=== PATIENT | female | born 2000 | race African-American/Black ===

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

== ENCOUNTER 2021-09-17 22:18 | Emergency (ER) | payer MEDICAID ==
[~2021-09-17] VITALS: Ht 157.5 cm; Wt 71.8 kg
[2021-09-17 22:56] VITALS: BP 107/63
[2021-09-17 23:21] LABS: BILIRUBIN,URINE NEGATIVE (NEG); CLARITY,URINE CLEAR; COLOR,URINE YELLOW; NITRITE,URINE NEGATIVE (NEG); PH,URINE 7.5 (<5.0-8.0); PROTEIN,URINE NEGATIVE (NEG-TRACE); UROBILINOGEN,URINE 0.2 mg/dL (0.2 mg/dL)
--- NOTE | 2021-09-17 23:22 | PHYS DOC ---
Past Medical History Past Medical History: Heart Disease, Other Additional Past Medical Histor: UNKNOWN CARDIAC PROBLEM Past Surgical History: Pacemaker, Other Additional Past Surgical Histo: AICD REMOVED Smoking Status: Former Smoker Alcohol Use: None Drug Use: Marijuana General Adult EDM: Chief Complaint: VAGINAL BLEEDING HPI: HPI: Patient is a 20 year old female who presents with states she had a baby 6 months ago and since then she has had some constipation issues and she had a hemorrhoid. She states that her OB doctor told her that the hemorrhoid came from when she was and plus of her constipation issues. Patient states that she still has hemorrhoid that gets bigger and smaller. Patient is educated that hemorrhoids do not go away unless they are removed surgically. Patient states she is also having vaginal itching and burning with urination. She denies abdominal pain, nausea, vomiting, diarrhea, fever, blood in her stool, chest pain, shortness of air, headache, dizziness. She denies concern for STD and would like to wait for her results before she is treated. No pain at this time. Review of Systems: Review of Systems: Constitutional: Denies fever or chills. [] Eyes: Denies change in visual acuity. [] HENT: Denies nasal congestion or sore throat. [] Respiratory: Denies cough or shortness of breath. [] Cardiovascular: Denies chest pain or edema. [] GI: Denies abdominal pain, nausea, vomiting, bloody stools or diarrhea. + Hemorrhoid [] : Denies dysuria. + Burning with urination. + Vaginal itching [] Musculoskeletal: Denies back pain or joint pain. [] Integument: Denies rash. [] Neurologic: Denies headache, focal weakness or sensory changes. [] Endocrine: Denies polyuria or polydipsia. [] Lymphatic: Denies swollen glands. [] Psychiatric: Denies depression or anxiety. [] Heart Score: C/O Chest Pain: No Allergies: Allergies: Allergies Coded Allergies Type Severity Reaction Last Updated Verified No Known Drug Allergies 06/01/17 No Physical Exam: PE: Constitutional: Well developed, well nourished, no acute distress, non-toxic appearance. [] HENT: Normocephalic, atraumatic, bilateral external ears normal, oropharynx moist, no oral exudates, nose normal. [] Eyes: PERRLA, EOMI, conjunctiva normal, no discharge. [] Neck: Normal range of motion, no tenderness, supple, no stridor. [] Cardiovascular:Heart rate regular rhythm, no murmur [] Lungs & Thorax: Bilateral breath sounds clear to auscultation [] Abdomen: Bowel sounds normal, soft, no tenderness, no masses, no pulsatile masses. [] Skin: Warm, dry, no erythema, no rash. Small nonthrombosed hemorrhoid to external rectum. [] Back: No tenderness, no CVA tenderness. [] Extremities: No tenderness, no cyanosis, no clubbing, ROM intact, no edema. [] Neurologic: Alert and oriented X 3, normal motor function, normal sensory function, no focal deficits noted. [] Psychologic: Affect normal, judgement normal, mood normal. [] EKG: EKG: [] Radiology/Procedures: Radiology/Procedures: [] Course & Med Decision Making: Course & Med Decision Making Pertinent Labs and Imaging studies reviewed. (See chart for details) See HPI. Alert and oriented x4. Ambulatory steady gait. Speaks in full clear sentences. No CVA tenderness. Abdomen is soft and nontender. Small nonthrombosed hemorrhoid to external rectum. No discharge from rectum. Wet prep did not show any acute findings. I have sent off for chlamydia and gonorrhea. Follow-up with your competitive intelligence analyst if needed. Take antibiotic as prescribed and with food. [] Hemant Disclaimer: Hemant Disclaimer: This electronic medical record was generated, in whole or in part, using a voice recognition dictation system. Departure Departure Impression: Primary Impression: Urinary symptom or sign Disposition: 01 HOME / SELF CARE / HOMELESS Condition: STABLE Referrals: NO PCP (PCP) Patient Instructions: Urinary Tract Infection Additional Instructions: Follow-up with primary care provider or your competitive intelligence analyst to soon as possible. Drink plenty of fluids. Take medication as prescribed and with food. Return for vomiting, high fever or bloody urine. Scripts Hydrocortisone (ANUSOL-HC) 30 Gm Cream..g. 1 EDDIE TP BID PRN for RECTAL PAIN, #30 GM 0 Refills Prov: BLAKE HENRIQUEZ APRN 09/18/21 Cephalexin (KEFLEX) 500 Mg Capsule 1 CAP PO BID for 7 Days, #14 CAP Prov: BLAKE HENRIQUEZ APRN 09/18/21 BLAKE HENRIQUEZ APRN Sep 17, 2021 23:22
[2021-09-17 23:31] LABS: BACTERIA,URINE FEW /HPF (0-FEW)
[2021-09-18] MEDS ORDERED: CEPH500C PO (00:22)
[2021-09-18] MEDS ORDERED: HYDR30CR61 TP (00:22)
[2021-09-20 16:25] LABS: GC PROBE Negative (Negative)
== END 2021-09-18 00:42 | disposition home or self-care (01) ==
LOC: ER 22:18
DX: K64.4 Residual hemorrhoidal skin tags (principal)
CPT/HCPCS: 81001; 81025; 87086; 87491; 87591; 99283; Q0111

== ENCOUNTER 2021-10-09 18:45 | Emergency (ER) | payer MEDICAID ==
[~2021-10-09] VITALS: Ht 157.5 cm; Wt 72.3 kg
[~2021-10-09 18:45] MED LIST changes: +CEPH500C PO; +HYDR30CR61 TP
[2021-10-09 19:33] VITALS: BP 134/78
[2021-10-09] MEDS ORDERED: DOXY100T PO (20:06)
[2021-10-09] MEDS ORDERED: METR-34 PO (20:06)
--- NOTE | 2021-10-09 20:07 | PHYS DOC ---
Past Medical History Past Medical History: Heart Disease, Other Additional Past Medical Histor: UNKNOWN CARDIAC PROBLEM (KAREN RUIZ Abundio SAND MIXER OPERATOR) Past Surgical History: Pacemaker, Tonsillectomy, Other Additional Past Surgical Histo: AICD REMOVED (SARAKAREN Del Castillo SAND MIXER OPERATOR) Smoking Status: Never Smoker Alcohol Use: Occasionally Drug Use: Marijuana (SARAKAREN SAND MIXER OPERATOR) General Adult EDM: Chief Complaint: FOREIGN BODY VAGINA HPI: HPI: Patient is a 21 year old female with a history of heart disease presenting today concerned she left a tampon in the vagina and she cannot reach it, she put the tampon in yesterday. Denies any symptoms. She states she was at a green party yesterday all night and did not realize she had a tampon. (KAREN RUIZ Abundio SAND MIXER OPERATOR) Review of Systems: Review of Systems: Constitutional: Denies fever or chills. [] GI: Denies abdominal pain, nausea, vomiting, bloody stools or diarrhea. [] Female : Reports foreign body in the vagina : Denies dysuria. [] Musculoskeletal: Denies back pain or joint pain. [] Integument: Denies rash. [] Neurologic: Denies headache, focal weakness or sensory changes. [] Psychiatric: Denies depression or anxiety. [] (DENYRomanKAREN Del Castillo SAND MIXER OPERATOR) Heart Score: C/O Chest Pain: N/A Risk Factors: Risk Factors: DM, Current or recent (<one month) smoker, HTN, HLP, family history of CAD, obesity. Risk Scores: Score 0 - 3: 2.5% MACE over next 6 weeks - Discharge Home Score 4 - 6: 20.3% MACE over next 6 weeks - Admit for Clinical Observation Score 7 - 10: 72.7% MACE over next 6 weeks - Early Invasive Strategies (CARLOKAREN QUINTANA SAND MIXER OPERATOR) Allergies: Allergies: Allergies Coded Allergies Type Severity Reaction Last Updated Verified No Known Drug Allergies 06/01/17 No (DENYKAREN Owens SAND MIXER OPERATOR) Physical Exam: PE: Constitutional: Well developed, well nourished, no acute distress, non-toxic appearance. [] Abdomen: Bowel sounds normal, soft, no tenderness, no masses, no pulsatile masses. [] Pelvic exam External pelvic is normal, internal vagina noted for foreign object consistent with a tampon which was successfully removed with forceps. IUD strings noted in the cervical os. Skin: Warm, dry, no erythema, no rash. [] Back: No tenderness, no CVA tenderness. [] Extremities: No tenderness, no cyanosis, no clubbing, ROM intact, no edema. [] Neurologic: Alert and oriented X 3, normal motor function, normal sensory function, no focal deficits noted. [] Psychologic: Affect normal, judgement normal, mood normal. [] (KAREN RUIZ APRN) Current Patient Data: Vital Signs: Vital Signs Date Time Temp Pulse Resp B/P (MAP) Pulse Ox O2 Delivery O2 Flow Rate FiO2 10/09/21 19:33 98.8 72 16 134/78 (96) 100 Room Air 98.8 (KAREN RUIZ APRN) EKG: EKG: [] (KAREN RUIZ APRN) Radiology/Procedures: Radiology/Procedures: [] (KAREN RUIZ APRN) Course & Med Decision Making: Course & Med Decision Making Pertinent Labs and Imaging studies reviewed. (See chart for details) This is a 21-year-old female patient presented to the ED today complaining of tampon in the vagina that she left yesterday at 7 PM. Patient was unable to remove it this morning. I successfully remove the tampon with a forceps. She has history of heart disease. She was discharged on doxycycline and metronidazole. Instructed not to have any intercourse for 7 days. Follow-up with AEROSPACE MECHANIC in a week (KAREN RUIZ APRN) Dragon Disclaimer: Dragon Disclaimer: This electronic medical record was generated, in whole or in part, using a voice recognition dictation system. (KAREN RUIZ APRN) Departure Departure Impression: Primary Impression: Foreign body in vagina Qualified Codes: T19.2XXA - Foreign body in vulva and vagina, initial encounter Disposition: HOME / SELF CARE / HOMELESS Condition: STABLE Referrals: NO PCP (PCP) ELENA AYERS MD follow up in one week Patient Instructions: Vaginal Foreign Body, [id number] Additional Instructions: We removed a tampon from your vagina. Please take the prescribed medications as ordered until completed. Follow-up with your AEROSPACE MECHANIC in 1 week Scripts Doxycycline Hyclate (DOXYCYCLINE HYCLATE) 100 Mg Tablet 1 TAB PO BID, #14 TAB Prov: KAREN RUIZ APRN 10/09/21 Metronidazole (METRONIDAZOLE) 500 Mg Tablet 1 TAB PO BID for 7 Days, #14 TAB 0 Refills Prov: KAREN RUIZ APRN 10/09/21 Attending Signature Attending Signature I have reviewed the PA/INFORMATION SYSTEMS ADMINISTRATOR's note and plan of care. I was available for con sultation as needed during the patient's visit in the emergency department. I agree with the clinical impression, plan, and disposition. (ELENA OCONNOR DO) KAREN RUIZ APRN Oct 09, 2021 20:06 ELENA OCONNOR DO Oct 09, 2021 23:23
== END 2021-10-09 20:00 | disposition home or self-care (01) ==
LOC: ER 18:45
DX: T19.2XXA Foreign body in vulva and vagina, initial encounter (principal); Z86.79 Personal history of other diseases of the circulatory system; Z95.810 Presence of automatic (implantable) cardiac defibrillator; X58.XXXA Exposure to other specified factors, initial encounter; Y93.89 Activity, other specified; Y92.89 Other specified places as the place of occurrence of the external cause; Y99.8 Other external cause status
CPT/HCPCS: 99284

== ENCOUNTER 2022-01-01 12:53 | Emergency (ER) | payer MEDICAID ==
[~2022-01-01] VITALS: Ht 157.5 cm; Wt 62.4 kg
[~2022-01-01 12:53] MED LIST changes: +DOXY100T PO; +METR-34 PO
[2022-01-01 13:00] VITALS: BP 119/61
--- NOTE | 2022-01-01 13:16 | PHYS DOC ---
Past Medical History Past Medical History: Heart Disease, Other Additional Past Medical Histor: UNKNOWN CARDIAC PROBLEM Past Surgical History: Pacemaker, Tonsillectomy, Other Additional Past Surgical Histo: AICD REMOVED Smoking Status: Never Smoker Alcohol Use: Occasionally Drug Use: Marijuana General Adult EDM: Chief Complaint: VAGINAL BLEEDING HPI: HPI: Patient is a 21-year-old female that presents today with vaginal bleeding on and off since December 09. Patient states she had an IUD placed in June 2021 after the of her child, she states that since that time she has had 1-2 periods a month and starting in December 2021 she has had continuous bleeding since December 09. Patient states that she goes through approximately 2-3 tampons a day, and she is concerned that it may be related to the IUD. She has not followed up with her primary care provider that placed the IUD in June to let her know that she is having problems she just thought it would go away. Patient denies abdominal pain, fever chills, nausea, vomiting, she does state that she has had some diarrhea stools in the last couple weeks as well. Patient states that she does not think she is , but has been having unprotected sex. Patient states she did not have vaginal discharge prior to vaginal bleeding started. Review of Systems: Review of Systems: Constitutional: Denies fever or chills. [] Eyes: Denies change in visual acuity. [] HENT: Denies nasal congestion or sore throat. [] Respiratory: Denies cough or shortness of breath. [] Cardiovascular: Denies chest pain or edema. [] GI: Denies abdominal pain, nausea, vomiting, bloody stools or diarrhea. [] : Denies dysuria. [] Musculoskeletal: Denies back pain or joint pain. [] Integument: Denies rash. [] Neurologic: Denies headache, focal weakness or sensory changes. [] Endocrine: Denies polyuria or polydipsia. [] Lymphatic: Denies swollen glands. [] Psychiatric: Denies depression or anxiety. [] Heart Score: C/O Chest Pain: No Risk Factors: Risk Factors: DM, Current or recent (<one month) smoker, HTN, HLP, family history of CAD, obesity. Risk Scores: Score 0 - 3: 2.5% MACE over next 6 weeks - Discharge Home Score 4 - 6: 20.3% MACE over next 6 weeks - Admit for Clinical Observation Score 7 - 10: 72.7% MACE over next 6 weeks - Early Invasive Strategies Allergies: Allergies: Allergies Coded Allergies Type Severity Reaction Last Updated Verified No Known Drug Allergies 06/01/17 No Physical Exam: PE: Constitutional: Well developed, well nourished, no acute distress, non-toxic appearance. [] HENT: Normocephalic, atraumatic, bilateral external ears normal, oropharynx moist, no oral exudates, nose normal. [] Eyes: PERRLA, EOMI, conjunctiva normal, no discharge. [] Neck: Normal range of motion, no tenderness, supple, no stridor. [] Cardiovascular:Heart rate regular rhythm, no murmur [] Lungs & Thorax: Bilateral breath sounds clear to auscultation [] Abdomen: Bowel sounds normal, soft, no tenderness, no masses, no pulsatile masses. [] Skin: Warm, dry, no erythema, no rash. [] Back: No tenderness, no CVA tenderness. [] Extremities: No tenderness, no cyanosis, no clubbing, ROM intact, no edema. [] Neurologic: Alert and oriented X 3, normal motor function, normal sensory function, no focal deficits noted. [] Psychologic: Affect normal, judgement normal, mood normal. [] Current Patient Data: Labs: SPEC #: [id number] BEAU: 01/01/22 STATUS: COMP REQ #: [id number] RECD: 01/01/22 [facility] DR: UDAY PRIEST APRN SOURCE: VAGINAL ENTR: 01/01/[address]: SHARRI PCP SPDESC: ORDERED: WET PREP COMMENTS: Has specimen been collected/obtained? Y Procedure Result WET PREP Final YEAST NONE SEEN TRICHOMONAS NONE SEEN CLUE CELLS CLUE CELLS PRESENT ALTERED CHRISTAL ALTERED CHRISTAL PRESENT SUGGESTIVE OF BACTERIAL VAGINOSIS WBCS FEW SQUAMOUS EPS MANY Laboratory Tests Test 01/01/22 13:37 01/01/22 15:55 01/01/22 16:00 White Blood Count 6.3 x10^3/uL Red Blood Count 4.36 x10^6/uL Hemoglobin 12.8 g/dL Hematocrit 38.2 % Mean Corpuscular Volume 88 fL Mean Corpuscular Hemoglobin 29 pg Mean Corpuscular Hemoglobin Concent 34 g/dL Red Cell Distribution Width 14.5 % Platelet Count 288 x10^3/uL Neutrophils (%) (Auto) 53 % Lymphocytes (%) (Auto) 39 % Monocytes (%) (Auto) 7 % Eosinophils (%) (Auto) 1 % Basophils (%) (Auto) 1 % Neutrophils # (Auto) 3.3 x10^3/uL Lymphocytes # (Auto) 2.5 x10^3/uL Monocytes # (Auto) 0.4 x10^3/uL Eosinophils # (Auto) 0.1 x10^3/uL Basophils # (Auto) 0.0 x10^3/uL Sodium Level 141 mmol/L Potassium Level 4.2 mmol/L Chloride Level 103 mmol/L Carbon Dioxide Level 26 mmol/L Anion Gap 12 Blood Urea Nitrogen 9 mg/dL Creatinine 0.8 mg/dL Estimated GFR (Cockcroft-Gault) 110.7 Glucose Level 74 mg/dL Calcium Level 9.1 mg/dL Urine Collection Type U cath Urine Color (Auto) Yellow Urine Turbidity Clear Urine pH (Auto) 6.0 Urine Specific Vidal 1.036 Urine Protein (Auto) 100 mg/dL Urine Glucose (Auto)(UA) Negative mg/dL Urine Ketones (Auto) 80 mg/dL Urine Blood (Auto) Negative Urine Nitrite Negative Urine Bilirubin (Auto) Negative Urine Urobilinogen (Auto) 3 mg/dL Urine Leukocyte Esterase (Auto) Negative Urine RBC 1-2 /HPF Urine WBC 1-4 /HPF Urine Squamous Epithelial Cells Occ /LPF Urine Bacteria Few /HPF Urine Mucus Mod /LPF Bedside Urine HCG, Qualitative Hcg negative Vital Signs: Vital Signs Date Time Temp Pulse Resp B/P (MAP) Pulse Ox O2 Delivery O2 Flow Rate FiO2 01/01/22 13:00 98.6 93 18 119/61 (80) 100 Room Air 98.6 Vital Signs Date Time Temp Pulse Resp B/P (MAP) Pulse Ox O2 Delivery O2 Flow Rate FiO2 01/01/22 13:00 98.6 93 18 119/61 (80) 100 Room Air 98.6 EKG: EKG: [] Radiology/Procedures: Radiology/Procedures: REASON: vaginal bleeding with IUD PROCEDURE: TRANSVAGINAL Transvaginal ULTRASOUND PELVIS Reason for examination: vaginal bleeding with IUD. Last menstrual period was 12/08/2021. TECHNIQUE: Transvaginal pelvic sonography was performed. FINDINGS: The uterus measures 8.3 x 4.5 x 4.1 cm in greatest dimension and appears to be homogeneous. An IUD is seen within the endometrial canal. The cervix is a small amount of fluid in the cervical canal. The endometrium is not abnormally thickened at 3.8 mm. The right ovary measures 3.2 x 2.0 x 2.0 cm in greatest dimensions and contains several follicles with the largest measuring 9.7 mm in size. The ovary shows good vascular flow. No right adnexal masses are seen. The left ovary measures 2.8 x 1.6 x 1.5 cm in greatest dimension and contains a single dominant 8 mm follicle. There is good vascular flow IMPRESSION: Small amount of fluid in cervical canal. Small follicles bilaterally. Electronically signed by: Manuela Glasgow MD (01/01/2022 2:33 PM) SARAVANAN [] Course & Med Decision Making: Course & Med Decision Making Pertinent Labs and Imaging studies reviewed. (See chart for details) 1649 reviewed radiological and laboratory results with patient, did inform her that her swabs did show a bacterial vaginosis, which can cause the vaginal bleeding that she has been experiencing, and did tell her that we will treat her for that, her urine also showed white blood cells could be indicative to urinary tract infection which I will treat as well. I did encourage patient to contact the physician or her [facility] for further management of her vaginal bleeding in relationship to her IUD, did inform her that her hemoglobin hematocrit are stable at this time but since she has concerns related to her vaginal bleeding that she should follow-up with her [facility] because that is her area of expertise. Patient verbalized understanding of this and is agreeable to the plan of care. Hemant Disclaimer: Hemant Disclaimer: This electronic medical record was generated, in whole or in part, using a voice recognition dictation system. Departure Departure Impression: Primary Impression: Bacterial vaginosis Additional Impressions: UTI (urinary tract infection) Qualified Codes: N30.00 - Acute cystitis without hematuria Vaginal bleeding Disposition: HOME / SELF CARE / HOMELESS Condition: STABLE Referrals: NO PCP (PCP) Patient Instructions: Bacterial Vaginosis, Urinary Tract Infection Additional Instructions: Flagyl 500 mg take 1 tablet twice daily for 7 full days Macrobid take 1 tablet twice daily for 7 full days Follow-up with your primary care physician, your [facility], or one of the listed clinics below for further management of your vaginal bleeding in relationship to your IUD Return to the emergency department for increased abdominal pain that localizes to the right lower quadrant, increased vaginal bleeding or your bleeding through 2 pads an hour for 4 straight hours, or development of a fever [place] [facility] [address] [place] [address] [facility] [address] [place] [address] [facility] [address] [place] [address] [facility] [address] [place] [address] [facility] [address] [place] [address] [facility] [address] [place] [address] [facility] [address] [place] [address] [facility] [address] [place] [address] [facility] [address] [place] [address] [facility] [address] [place] [address] Scripts Nitrofurantoin Monohyd/M-Cryst (MACROBID 100 MG CAPSULE) 100 Mg Capsule 1 CAP PO BID for 7 Days, #14 CAP 0 Refills Prov: UDAY PRIEST COMPOSING MACHINE OPERATOR 01/01/22 Metronidazole (METRONIDAZOLE) 500 Mg Tablet 1 TAB PO BID for 7 Days, #14 TAB 0 Refills Prov: UDAY PRIEST COMPOSING MACHINE OPERATOR 01/01/22 UDAY PRIEST COMPOSING MACHINE OPERATOR Jan 01, 2022 13:16
[2022-01-01 13:46] LABS: BASO % 1 % (0-3); EOS # 0.1 x10^3/uL (0.0-0.7); EOS % 1 % (0-3); HEMATOCRIT 38.2 % (36.0-47.0); HEMOGLOBIN 12.8 g/dL (12.0-15.5); LYMPH # 2.5 x10^3/uL (1.0-4.8); LYMPH % 39 % (24-48); MEAN CORPUSCULAR HEMOGLOBIN 29 pg (25-35); MEAN CORPUSCULAR HGB CONC 34 g/dL (31-37); MEAN CORPUSCULAR VOLUME 88 fL (79-100); MONO # 0.4 x10^3/uL (0.0-1.1); MONO % 7 % (0-9); NEUT # 3.3 x10^3/uL (1.8-7.7); NEUT % 53 % (31-73); PLATELET COUNT 288 x10^3/uL (140-400); RED BLOOD COUNT 4.36 x10^6/uL (3.50-5.40); RED CELL DISTRIBUTION WIDTH 14.5 % (11.5-14.5); WHITE BLOOD COUNT 6.3 x10^3/uL (4.0-11.0)
[2022-01-01 13:55] LABS: CALCIUM 9.1 mg/dL (8.5-10.1); CREATININE 0.8 mg/dL (0.6-1.0); GFR 110.7; POTASSIUM 4.2 mmol/L (3.5-5.1)
--- NOTE | 2022-01-01 14:35 | RAD ---
Transvaginal ULTRASOUND PELVIS Reason for examination: vaginal bleeding with IUD. Last menstrual period was 12/08/2021. TECHNIQUE: Transvaginal pelvic sonography was performed. FINDINGS: The uterus measures 8.3 x 4.5 x 4.1 cm in greatest dimension and appears to be homogeneous. An IUD is seen within the endometrial canal. The cervix is a small amount of fluid in the cervical canal. The endometrium is not abnormally thickened at 3.8 mm. The right ovary measures 3.2 x 2.0 x 2.0 cm in greatest dimensions and contains several follicles wit h the largest measuring 9.7 mm in size. The ovary shows good vascular flow. No right adnexal masses a re seen. The left ovary measures 2.8 x 1.6 x 1.5 cm in greatest dimension and contains a single dominant 8 mm follicle. There is good vascular flow IMPRESSION: Small amount of fluid in cervical canal. Small follicles bilaterally. Electronically signed by: Manuela Glasgow MD (01/01/2022 2:33 PM) SARAVANAN
[2022-01-01 16:19] LABS: BACTERIA,URINE FEW /HPF (0-FEW)
[2022-01-01] MEDS ORDERED: NITR100C62 PO (16:53)
[2022-01-01] MEDS ORDERED: METR-34 PO (16:53)
[2022-01-03 13:16] LABS: GC PROBE Negative (Negative)
== END 2022-01-01 17:01 | disposition home or self-care (01) ==
LOC: ER 12:53
DX: N30.00 Acute cystitis without hematuria (principal); N76.0 Acute vaginitis; B96.89 Other specified bacterial agents as the cause of diseases classified elsewhere; Z95.0 Presence of cardiac pacemaker
CPT/HCPCS: 36415; 76830; 80048; 81001; 81025; 85025; 87491; 87591; 99284; Q0111

== ENCOUNTER 2022-01-15 21:14 | Inpatient (IN) | payer MEDICAID ==
[~2022-01-15] VITALS: Ht 157.5 cm; Wt 62.2 kg
--- NOTE | 2022-01-15 21:29 | PHYS DOC ---
Past Medical History Past Medical History: Heart Disease, Other Additional Past Medical Histor: UNKNOWN CARDIAC PROBLEM (KAREN RUIZ IRRIGATIONIST) Past Surgical History: Pacemaker, Tonsillectomy, Other Additional Past Surgical Histo: AICD REMOVED (KAREN RUIZ IRRIGATIONIST) Smoking Status: Never Smoker Alcohol Use: Occasionally Drug Use: Marijuana (KAREN RUIZ IRRIGATIONIST) General Adult EDM: Chief Complaint: SUICDAL IDEATION HPI: HPI: Patient is a 21 year old female with previous history of SI presented to the ED today to be evaluated for drug overdose. Patient took unknown amount of Tylenol 500 mg and a medicine that begins with the B for BV or chlamydia. Patient will not give us much information. She is facing away from people. She states she was suicidal and she is still suicidal. She will not give us her current suicidal plan. She was placed on 1:1 right away. (KAREN RUIZ IRRIGATIONIST) Review of Systems: Review of Systems: Constitutional: Denies fever or chills. [] Eyes: Denies change in visual acuity. [] HENT: Denies nasal congestion or sore throat. [] Respiratory: Denies cough or shortness of breath. [] Cardiovascular: Denies chest pain or edema. [] GI: Denies abdominal pain, nausea, vomiting, bloody stools or diarrhea. [] : Denies dysuria. [] Musculoskeletal: Denies back pain or joint pain. [] Integument: Denies rash. [] Neurologic: Denies headache, focal weakness or sensory changes. [] Psychiatric: Reports suicidal attempt (KAREN RUIZ Abundio IRRIGATIONIST) Heart Score: C/O Chest Pain: N/A Risk Factors: Risk Factors: DM, Current or recent (<one month) smoker, HTN, HLP, family history of CAD, obesity. Risk Scores: Score 0 - 3: 2.5% MACE over next 6 weeks - Discharge Home Score 4 - 6: 20.3% MACE over next 6 weeks - Admit for Clinical Observation Score 7 - 10: 72.7% MACE over next 6 weeks - Early Invasive Strategies (SARAKAREN Abundio IRRIGATIONIST) Current Medications: Current Medications Medications (Trade) Dose Ordered Sig/Bong Start Time Stop Time Status Last Admin Dose Admin Sodium Chloride 1,000 ml @ 1,000 mls/hr 1X ONCE 01/15/22 21:30 01/15/22 22:29 UNV (KAREN RUIZ Abundio IRRIGATIONIST) Allergies: Allergies: Allergies Coded Allergies Type Severity Reaction Last Updated Verified No Known Drug Allergies 06/01/17 No (KAREN RUIZ Abundio VIEYRA) Physical Exam: PE: Constitutional: Well developed, well nourished, no acute distress, non-toxic appearance. [] HENT: Normocephalic, atraumatic, bilateral external ears normal, oropharynx moist, no oral exudates, nose normal. [] Eyes: PERRLA, EOMI, conjunctiva normal, no discharge. [] Neck: Normal range of motion, no tenderness, supple, no stridor. [] Cardiovascular:Heart rate regular rhythm, no murmur [] Lungs & Thorax: Bilateral breath sounds clear to auscultation [] Abdomen: Bowel sounds normal, soft, no tenderness, no masses, no pulsatile masses. [] Skin: Warm, dry, no erythema, no rash. [] Back: No tenderness, no CVA tenderness. [] Extremities: No tenderness, no cyanosis, no clubbing, ROM intact, no edema. [] Neurologic: Alert and oriented X 3, normal motor function, normal sensory function, no focal deficits noted. [] Psychologic: Flat affect, depressed mood (DENYKAREN Owens IRRIGATIONIST) EKG: EKG: [] (SARAKAREN Abundio IRRIGATIONIST) Radiology/Procedures: Radiology/Procedures: [] (KAREN RUIZ APRN) Course & Med Decision Making: Course & Med Decision Making Pertinent Labs and Imaging studies reviewed. (See chart for details) This is a 21-year-old female patient presented to the ED today to be evaluated for intentional overdose on Tylenol unknown amount of a drug that begins with B for bacterial vaginosis or chlamydia. Patient states she does not remember what time she took this medications She is in the ED with a small bottle of acetaminophen 500 mg, she has 13 capsules left. She was put on 1:1 [employer] records show she was seen here January 01 2022 and was sent home on Macrobid and Flagyl. She was also diagnosed with chlamydia a couple days after the visit of January 01, 2022. She states they ordered a prescription for cephalexin for her for chlamydia. CBC, CMP, lipase, no acute findings. EKG is negative, patient has not provided urine yet Acetaminophen level 10.8, salicylate level 4.8. Poison control was consulted. MARCEL from [facility] came and evaluated patient, safety plan was established, she is supposed to go home with her sister who is willing to stay with her after being cleared medically. [address] Bentley (KAREN RUIZ APRN) Course & Med Decision Making I received signout on this patient. I was called by poison control who states that the acetaminophen level of 29 and an unknown ingestion requires treatment with N-acetylcysteine. We will dose the patient based on protocol and admit (KEN BENTLEY MD) Dragon Disclaimer: Dragon Disclaimer: This electronic medical record was generated, in whole or in part, using a voice recognition dictation system. (KAREN RUIZ APRN) Departure Departure Impression: Primary Impression: Overdose Qualified Codes: T50.902A - Poisoning by unspecified drugs, medicaments and biological substances, intentional self-harm, initial encounter Additional Impression: Suicide attempt Referrals: NO PCP (PCP) KAREN RUIZ APRN Jan 15, 2022 21:29 KEN BENTLEY MD Jan 16, 2022 02:54
[2022-01-15 21:51] LABS: BASO # 0.1 x10^3/uL (0.0-0.2); BASO % 1 % (0-3); EOS % 0 % (0-3); HEMATOCRIT 38.8 % (36.0-47.0); LYMPH # 2.5 x10^3/uL (1.0-4.8); LYMPH % 33 % (24-48); MEAN CORPUSCULAR HEMOGLOBIN 30 pg (25-35); MEAN CORPUSCULAR HGB CONC 34 g/dL (31-37); MEAN CORPUSCULAR VOLUME 88 fL (79-100); MONO # 0.4 x10^3/uL (0.0-1.1); MONO % 6 % (0-9); NEUT # 4.6 x10^3/uL (1.8-7.7); NEUT % 60 % (31-73); PLATELET COUNT 224 x10^3/uL (140-400); RED BLOOD COUNT 4.39 x10^6/uL (3.50-5.40); RED CELL DISTRIBUTION WIDTH 14.3 % (11.5-14.5); WHITE BLOOD COUNT 7.6 x10^3/uL (4.0-11.0)
[2022-01-15] MEDS ORDERED: IV NORMAL SALINE 1000ML BAG 1,000 ML IV ONE (22:00)
[2022-01-15 22:01] LABS: PROTHROMBIN TIME PATIENT 13.9 SEC (11.7-14.0)
[2022-01-15 22:02] LABS: CALCIUM 9.2 mg/dL (8.5-10.1); CREATININE 0.8 mg/dL (0.6-1.0); GFR 110.7
[2022-01-15 22:06] LABS: ACETAMIN 10.8 mcg/ml (10-30); ETHANOL < 10 mg/dL (0-10); SALIC 4.8 mg/dL (2.8-20.0)
[2022-01-15 22:09] LABS: ALBUMIN 4.4 g/dL (3.4-5.0); MAGNESIUM 1.9 mg/dL (1.8-2.4); TOTAL BILIRUBIN 0.4 mg/dL (0.2-1.0); TOTAL PROTEIN 8.6 g/dL (6.4-8.2)
[2022-01-16 00:58] LABS: BACTERIA,URINE 0 /HPF (0-FEW)
[2022-01-16 00:59] LABS: BARBITURATES NEG (NEG); BENZODIAZEPINES NEG (NEG); CANNABINOIDS POS (NEG); COCAINE NEG (NEG); METHADONE NEG (NEG); OPIATES NEG (NEG); PHENCYCLIDINE NEG (NEG)
[2022-01-16 01:00] LABS: AMPHETAMINE/METHAMPHETAMINE NEG (NEG)
[2022-01-16] MEDS ORDERED: ACETYLCYSTEINE IV ONE ×3 (03:30→08:30)
[2022-01-16] MEDS ORDERED: DEXTROSE 5% IV ONE ×3 (03:30→08:30)
[2022-01-16] MEDS ORDERED: ONDANSETRON ODT 4 MG TAB.RAPDIS. PO ONE (04:00)
[2022-01-16 04:15] VITALS: BP 123/56
[2022-01-16 07:00] VITALS: BP 117/58
--- NOTE | 2022-01-16 07:54 | NUR ---
Message sent to Dr. Hoffman via [employer] to notify him that PAT team cleared patient from 1:1, awaiting callback.
[2022-01-16 07:59] LABS: SALIC 2.9 mg/dL (2.8-20.0)
[2022-01-16 08:04] LABS: ACETAMIN 5.88 mcg/ml (10-30)
[2022-01-16] MEDS ORDERED: CALCIUM CARBONATE 500 MG TAB.CHEW PO PRN (10:00)
[2022-01-16] MEDS ORDERED: ONDANSETRON PF 4 MG/2 ML VIAL. IVP PRN (10:00)
[2022-01-16] MEDS ORDERED: ZOLPIDEM 5 MG TABLET. PO PRN (10:00)
--- NOTE | 2022-01-16 10:44 | PDOC1 ---
History and Physical Date of Service: DOS: DATE: 01/16/22 TIME: 10:44 Chief Complaint: Chief Complain: Tylenol overdose suicidal ideation History of Present Illness: HPI: Patient is a 21 year old female with previous history of SI presented to the ED today to be evaluated for drug overdose. Patient took unknown amount of Tylenol 500 mg and a medicine that begins with the B for BV or chlamydia. Patient will not give us much information. She is facing away from people. She states she was suicidal and she is still suicidal. She will not give us her current suicidal plan. She was placed on 1:1 right away. When I was able to evaluate patient she was resting in her room denying suicidal ideation. Receiving NAC Past Medical/Surgical History: PMH/PSH: Heart disease Allergies: Allergies: Coded Allergies: No Known Drug Allergies (Unverified , 06/01/17) Family History: Family History: HTN Social History: Social History: denies alcohol tobacco use. Occ marijuana use Current Medications: Current Medications Current Medications Sodium Chloride 1,000 ml @ 1,000 mls/hr 1X ONCE IV Last administered on 01/15/22at 21:45; Start 01/15/22 at 22:00; Stop 01/15/22 at 22:59; Status DC Acetylcysteine 9.33 gm/Dextrose 246.65 ml @ 200 mls/ hr 1X ONCE IV Last administered on 01/16/22at 03:24; Start 01/16/22 at 03:30; Stop 01/16/22 at 04:43; Status DC Acetylcysteine 3.11 gm/Dextrose 515.55 ml @ 125 mls/ hr 1X ONCE IV Last administered on 01/16/22at 05:02; Start 01/16/22 at 04:30; Stop 01/16/22 at 08:37; Status DC Acetylcysteine 6.22 gm/Dextrose 1,031.1 ml @ 62.5 mls/ hr 1X ONCE IV Last administered on 01/16/22at 09:36; Start 01/16/22 at 08:30; Stop 01/17/22 at 00:59 Ondansetron HCl (Zofran Odt) 4 mg 1X ONCE PO Last administered on 01/16/22at 03:44; Start 01/16/22 at 04:00; Stop 01/16/22 at 04:01; Status DC Ondansetron HCl (Zofran) 4 mg PRN Q6HRS PRN IVP NAUSEA/VOMITING; Start 01/16/22 at 10:00 Calcium Carbonate/ Glycine (Tums) 500 mg PRN Q3HRS PRN PO UPSET STOMACH; Start 01/16/22 at 10:00 Zolpidem Tartrate (Ambien) 5 mg PRN QHS PRN PO INSOMNIA, MAY REPEAT IN 1HR; Start 01/16/22 at 10:00 Senna/Docusate Sodium (Senna Plus) 1 tab BID PO ; Start 01/16/22 at 21:00 Enoxaparin Sodium (Lovenox 40mg Syringe) 40 mg Q24H SQ ; Start 01/16/22 at 11:00 Active Scripts Active Macrobid 100 Mg Capsule (Nitrofurantoin Monohyd/M-Cryst) 100 Mg Capsule 1 Cap PO BID 7 Days Metronidazole 500 Mg Tablet 1 Tab PO BID 7 Days Doxycycline Hyclate 100 Mg Tablet 1 Tab PO BID Metronidazole 500 Mg Tablet 1 Tab PO BID 7 Days Anusol-Hc (Hydrocortisone) 30 Gm Cream..g. 1 Re TP BID PRN Keflex (Cephalexin) 500 Mg Capsule 1 Cap PO BID 7 Days Ondansetron Hcl 4 Mg Tablet 1 Tab PO PRN Q6HRS PRN 3 Days Zofran (Ondansetron Hcl) 4 Mg Tablet 1 Tab PO PRN Q6-8HRS Vitamin Tablet ( Vit No.124/Iron/FA) 1 Each Tablet 1 Tab PO DAILY 30 Days Macrobid 100 Mg Capsule (Nitrofurantoin Monohyd/M-Cryst) 100 Mg Capsule 1 Cap PO BID 5 Days ROS: Review of Systems Review of System Unless noted in HPI 14 point review of systems was negative Physical Exam: Vital Signs: Vital Signs Date Time Temp Pulse Resp B/P (MAP) Pulse Ox O2 Delivery O2 Flow Rate FiO2 01/16/22 07:00 98.5 97 20 117/58 (77) 97 Room Air 98.5 Physcial Exam: GEN: No apparent distress. Alert and oriented HEENT: Normal cephalic, atraumatic, external auditory canals are patent EYES: Extraocular muscles are intact, pupil are equally round and reactive to light and accommodation MUSCULOSKELETAL: Well developed , well nourished, good range of motion ENDOCRINE: No thyromegaly was palpated LYMPHATICS: No cervical chain or axillary nodes were noted HEMATOPOIETIC: No bruising NECK: Supple, no JVD, no thyromegaly was noted LUNGS: Clear to auscultation in all lung hawkins without rhonchi or wheezing HEART: RRR, S!, S2 present. Peripheral pulses intact, no obvious murmurs noted ABDOMEN: Soft, nontender. Positive bowel sounds, no organomegaly, normal bowel sounds EXTREMITIES: Without clubbing, cyanosis, or edema. Pedal pulses intact. Negative Homans sign NEUROLOGIC: Normal speech and tone. A&O x 3, moves all extremities, no obvious focal deficits PSYCHIATRIC: Normal affect, normal mood. Stable SKIN: No ulcerations or rashes, good skin turgor, no jaundice VASCULAR: Good capillary refill, neurovascular bundle appears to be intact Labs: Labs: Laboratory Tests Test 01/15/22 21:38 01/16/22 00:16 01/16/22 00:32 01/16/22 00:46 White Blood Count 7.6 x10^3/uL (4.0-11.0) Red Blood Count 4.39 x10^6/uL (3.50-5.40) Hemoglobin 13.0 g/dL (12.0-15.5) Hematocrit 38.8 % (36.0-47.0) Mean Corpuscular Volume 88 fL (79-100) Mean Corpuscular Hemoglobin 30 pg (25-35) Mean Corpuscular Hemoglobin Concent 34 g/dL (31-37) Red Cell Distribution Width 14.3 % (11.5-14.5) Platelet Count 224 x10^3/uL (140-400) Neutrophils (%) (Auto) 60 % (31-73) Lymphocytes (%) (Auto) 33 % (24-48) Monocytes (%) (Auto) 6 % (0-9) Eosinophils (%) (Auto) 0 % (0-3) Basophils (%) (Auto) 1 % (0-3) Neutrophils # (Auto) 4.6 x10^3/uL (1.8-7.7) Lymphocytes # (Auto) 2.5 x10^3/uL (1.0-4.8) Monocytes # (Auto) 0.4 x10^3/uL (0.0-1.1) Eosinophils # (Auto) 0.0 x10^3/uL (0.0-0.7) Basophils # (Auto) 0.1 x10^3/uL (0.0-0.2) Prothrombin Time 13.9 SEC (11.7-14.0) Prothromb Time International Ratio 1.1 (0.8-1.1) Activated Partial Thromboplast Time 31 SEC (24-38) Sodium Level 135 mmol/L (136-145) Potassium Level 4.0 mmol/L (3.5-5.1) Chloride Level 100 mmol/L (98-107) Carbon Dioxide Level 23 mmol/L (21-32) Anion Gap 12 (6-14) Blood Urea Nitrogen 12 mg/dL (7-20) Creatinine 0.8 mg/dL (0.6-1.0) Estimated GFR (Cockcroft-Gault) 110.7 BUN/Creatinine Ratio 15 (6-20) Glucose Level 81 mg/dL (70-99) Calcium Level 9.2 mg/dL (8.5-10.1) Magnesium Level 1.9 mg/dL (1.8-2.4) Total Bilirubin 0.4 mg/dL (0.2-1.0) Aspartate Amino Transf (AST/SGOT) 27 U/L (15-37) Alanine Aminotransferase (ALT/SGPT) 31 U/L (14-59) Alkaline Phosphatase 51 U/L (46-116) Creatine Kinase 121 U/L (26-192) Troponin I High Sensitivity < 4 ng/L (4-50) < 4 ng/L (4-50) Total Protein 8.6 g/dL (6.4-8.2) Albumin 4.4 g/dL (3.4-5.0) Albumin/Globulin Ratio 1.0 (1.0-1.7) Lipase 37 U/L (73-393) Salicylates Level 4.8 mg/dL (2.8-20.0) Salicylate Last Dose Date Unk Salicylate Last Dose Time Unk Acetaminophen Level 10.8 mcg/ml (10-30) 29.0 mcg/ml (10-30) Acetaminophen Last Dose Date Unk Unk Acetaminophen Last Dose Time Unk Unk Ethyl Alcohol Level < 10 mg/dL (0-10) Urine Collection Type Unknown Urine Color (Auto) Yellow Urine Turbidity Hazy Urine pH (Auto) 6.0 (<5.0-8.0) Urine Specific [place] 1.042 (1.000-1.030) Urine Protein (Auto) 70 mg/dL (Negative) Urine Glucose (Auto)(UA) Negative mg/dL (Negative) Urine Ketones (Auto) >150 mg/dL (Negative) Urine Blood (Auto) Small (Negative) Urine Nitrite Negative (Negative) Urine Bilirubin (Auto) Negative (Negative) Urine Urobilinogen (Auto) Normal mg/dL (Normal) Urine Leukocyte Esterase (Auto) Negative (Negative) Urine RBC 11-20 /HPF (0-2) Urine WBC 1-4 /HPF (0-4) Urine Squamous Epithelial Cells Mod /LPF Urine Bacteria 0 /HPF (0-FEW) Urine Mucus Marked /LPF Urine Opiates Screen Neg (NEG) Urine Methadone Screen Neg (NEG) Urine Barbiturates Neg (NEG) Urine Phencyclidine Screen Neg (NEG) Urine Amphetamine/Methamphetamine Neg (NEG) Urine Benzodiazepines Screen Neg (NEG) Urine Cocaine Screen Neg (NEG) Urine Cannabinoids Screen Pos (NEG) Urine Ethyl Alcohol Neg (NEG) Bedside Urine HCG, Qualitative Hcg negative (Negative) Test 01/16/22 02:30 01/16/22 07:30 SARS-CoV-2 Antigen (Rapid) Negative (NEGATIVE) Troponin I High Sensitivity 5 ng/L (4-50) Salicylates Level 2.9 mg/dL (2.8-20.0) Salicylate Last Dose Date Unknown Salicylate Last Dose Time Unknown Acetaminophen Level 5.88 mcg/ml (10-30) Acetaminophen Last Dose Date Unk Acetaminophen Last Dose Time Unk Laboratory Tests Test 01/15/22 21:38 01/16/22 00:16 01/16/22 00:32 01/16/22 00:46 White Blood Count 7.6 x10^3/uL (4.0-11.0) Red Blood Count 4.39 x10^6/uL (3.50-5.40) Hemoglobin 13.0 g/dL (12.0-15.5) Hematocrit 38.8 % (36.0-47.0) Mean Corpuscular Volume 88 fL (79-100) Mean Corpuscular Hemoglobin 30 pg (25-35) Mean Corpuscular Hemoglobin Concent 34 g/dL (31-37) Red Cell Distribution Width 14.3 % (11.5-14.5) Platelet Count 224 x10^3/uL (140-400) Neutrophils (%) (Auto) 60 % (31-73) Lymphocytes (%) (Auto) 33 % (24-48) Monocytes (%) (Auto) 6 % (0-9) Eosinophils (%) (Auto) 0 % (0-3) Basophils (%) (Auto) 1 % (0-3) Neutrophils # (Auto) 4.6 x10^3/uL (1.8-7.7) Lymphocytes # (Auto) 2.5 x10^3/uL (1.0-4.8) Monocytes # (Auto) 0.4 x10^3/uL (0.0-1.1) Eosinophils # (Auto) 0.0 x10^3/uL (0.0-0.7) Basophils # (Auto) 0.1 x10^3/uL (0.0-0.2) Prothrombin Time 13.9 SEC (11.7-14.0) Prothromb Time International Ratio 1.1 (0.8-1.1) Activated Partial Thromboplast Time 31 SEC (24-38) Sodium Level 135 mmol/L (136-145) Potassium Level 4.0 mmol/L (3.5-5.1) Chloride Level 100 mmol/L (98-107) Carbon Dioxide Level 23 mmol/L (21-32) Anion Gap 12 (6-14) Blood Urea Nitrogen 12 mg/dL (7-20) Creatinine 0.8 mg/dL (0.6-1.0) Estimated GFR (Cockcroft-Gault) 110.7 BUN/Creatinine Ratio 15 (6-20) Glucose Level 81 mg/dL (70-99) Calcium Level 9.2 mg/dL (8.5-10.1) Magnesium Level 1.9 mg/dL (1.8-2.4) Total Bilirubin 0.4 mg/dL (0.2-1.0) Aspartate Amino Transf (AST/SGOT) 27 U/L (15-37) Alanine Aminotransferase (ALT/SGPT) 31 U/L (14-59) Alkaline Phosphatase 51 U/L (46-116) Creatine Kinase 121 U/L (26-192) Troponin I High Sensitivity < 4 ng/L (4-50) < 4 ng/L (4-50) Total Protein 8.6 g/dL (6.4-8.2) Albumin 4.4 g/dL (3.4-5.0) Albumin/Globulin Ratio 1.0 (1.0-1.7) Lipase 37 U/L (73-393) Salicylates Level 4.8 mg/dL (2.8-20.0) Salicylate Last Dose Date Unk Salicylate Last Dose Time Unk Acetaminophen Level 10.8 mcg/ml (10-30) 29.0 mcg/ml (10-30) Acetaminophen Last Dose Date Unk Unk Acetaminophen Last Dose Time Unk Unk Ethyl Alcohol Level < 10 mg/dL (0-10) Urine Collection Type Unknown Urine Color (Auto) Yellow Urine Turbidity Hazy Urine pH (Auto) 6.0 (<5.0-8.0) Urine Specific [place] 1.042 (1.000-1.030) Urine Protein (Auto) 70 mg/dL (Negative) Urine Glucose (Auto)(UA) Negative mg/dL (Negative) Urine Ketones (Auto) >150 mg/dL (Negative) Urine Blood (Auto) Small (Negative) Urine Nitrite Negative (Negative) Urine Bilirubin (Auto) Negative (Negative) Urine Urobilinogen (Auto) Normal mg/dL (Normal) Urine Leukocyte Esterase (Auto) Negative (Negative) Urine RBC 11-20 /HPF (0-2) Urine WBC 1-4 /HPF (0-4) Urine Squamous Epithelial Cells Mod /LPF Urine Bacteria 0 /HPF (0-FEW) Urine Mucus Marked /LPF Urine Opiates Screen Neg (NEG) Urine Methadone Screen Neg (NEG) Urine Barbiturates Neg (NEG) Urine Phencyclidine Screen Neg (NEG) Urine Amphetamine/Methamphetamine Neg (NEG) Urine Benzodiazepines Screen Neg (NEG) Urine Cocaine Screen Neg (NEG) Urine Cannabinoids Screen Pos (NEG) Urine Ethyl Alcohol Neg (NEG) Bedside Urine HCG, Qualitative Hcg negative (Negative) Test 01/16/22 02:30 01/16/22 07:30 SARS-CoV-2 Antigen (Rapid) Negative (NEGATIVE) Troponin I High Sensitivity 5 ng/L (4-50) Salicylates Level 2.9 mg/dL (2.8-20.0) Salicylate Last Dose Date Unknown Salicylate Last Dose Time Unknown Acetaminophen Level 5.88 mcg/ml (10-30) Acetaminophen Last Dose Date Unk Acetaminophen Last Dose Time Unk Assessment/Plan Assessment/Plan Suicidal ideation and Tylenol overdose Evaluated by PAT team okay for discharge has resources and sister will take her home NAC ordered appropriately finish before d/c Poison control Outpatient psych f/u Justifications for Admission Other Justification YAO MARRERO MD Jan 16, 2022 10:44
[2022-01-16 11:00] VITALS: BP 105/38
[2022-01-16] MEDS: ENOXAPARIN 40 MG/0.4 ML SYRINGE. SQ SCH ×2 (11:00→12:28)
--- NOTE | 2022-01-16 20:31 | PDOC3 ---
[facility]-Discharge Summary Date of Admission: Date of Admission: Jan 16, 2022 Date of Discharge: Date of Discharge: Jan 16, 2022 Admission Diagnosis: Admitting Diagnosis: SI, tylenol o/d Hospital Course: Hospital Course: Suicidal ideation and Tylenol overdose Evaluated by PAT team nesha for discharge has resources and sister will take her home NAC ordered appropriately finish before d/c Poison control Outpatient psych f/u Disposition: Disposition/Orders: D/C to Home Activity: Activity: Resume previous activity Diet: Diet: Regular Medications: Home Meds Active Scripts Ondansetron Hcl (ZOFRAN) 4 Mg Tablet, 1 TAB PO PRN Q6-8HRS for NAUSEA, #12 TAB Prov:GEETHA CHOPRA MD 08/06/20 Vit No.124/Iron/FA ( Vitamin Tablet) 1 Each Tablet, 1 TAB PO DAILY for 30 Days, #30 TAB 0 Refills Prov:MILLIE ZARATE MD 05/31/20 Discontinued Scripts Nitrofurantoin Monohyd/M-Cryst (MACROBID 100 MG CAPSULE) 100 Mg Capsule, 1 CAP PO BID for 7 Days, #14 CAP 0 Refills Prov:UDAY PRIEST BUSINESS EDITOR 01/01/22 Metronidazole (METRONIDAZOLE) 500 Mg Tablet, 1 TAB PO BID for 7 Days, #14 TAB 0 Refills Prov:UDAY PRIEST BUSINESS EDITOR 01/01/22 Doxycycline Hyclate (DOXYCYCLINE HYCLATE) 100 Mg Tablet, 1 TAB PO BID, #14 TAB Prov:CARLORUDYRomanKAREN Abundio BUSINESS EDITOR 10/09/21 Metronidazole (METRONIDAZOLE) 500 Mg Tablet, 1 TAB PO BID for 7 Days, #14 TAB 0 Refills Prov:SARAKAREN Abundio BUSINESS EDITOR 10/09/21 Hydrocortisone (ANUSOL-HC) 30 Gm Cream..g., 1 EDDIE TP BID PRN for RECTAL PAIN, #30 GM 0 Refills Prov:BLAKE HENRIQUEZ BUSINESS EDITOR 09/18/21 Cephalexin (KEFLEX) 500 Mg Capsule, 1 CAP PO BID for 7 Days, #14 CAP Prov:BLAKE HENRIQUEZ BUSINESS EDITOR 09/18/21 Ondansetron Hcl (ONDANSETRON HCL) 4 Mg Tablet, 1 TAB PO PRN Q6HRS PRN for NAUSEA/VOMITING for 3 Days, #10 TAB 0 Refills Prov:APRYL FOX BUSINESS EDITOR 08/14/20 Nitrofurantoin Monohyd/M-Cryst (MACROBID 100 MG CAPSULE) 100 Mg Capsule, 1 CAP PO BID for 5 Days, #10 CAP 0 Refills Prov:MILLIE ZARATE MD 05/31/20 Scheduled Ondansetron Hcl (Zofran), 1 TAB PO PRN Q6-8HRS Vit No.124/Iron/FA ( Vitamin Tablet), 1 TAB PO DAILY Discontinued Medications Cephalexin (Keflex), 1 CAP PO BID Doxycycline Hyclate (Doxycycline Hyclate), 1 TAB PO BID Hydrocortisone (Anusol-Hc), 1 EDDIE TP BID PRN for RECTAL PAIN Metronidazole (Metronidazole), 1 TAB PO BID Metronidazole (Metronidazole), 1 TAB PO BID Nitrofurantoin Monohyd/M-Cryst (Macrobid 100 Mg Capsule), 1 CAP PO BID Nitrofurantoin Monohyd/M-Cryst (Macrobid 100 Mg Capsule), 1 CAP PO BID Ondansetron Hcl (Ondansetron Hcl), 1 TAB PO PRN Q6HRS PRN for NAUSEA/VOMITING Justicifation of Admission Dx: Justifications for Admission: Justification of Admission Dx: N/A YAO MARRERO MD Jan 16, 2022 20:31
[2022-01-16] MEDS ORDERED: SENNOSIDES/DOCUSATE 8.6/50MG TABLET. PO SCH (21:00)
--- NOTE | 2022-01-17 00:43 | EKG ---
[facility] [address] [place] [address] Test Date: 2022-01-15 Test Time: 21:33:04 Pat Name: SUSAN SÁNCHEZ Department: Room: [facility] Gender: F Mechanical Engineering Technologist: : 2000 Requested By: KAREN RUIZ Order Number: [id number] Reading MD: Juan Pablo Sarmiento Measurements Intervals [place] Rate: 76 P: 54 MI: 160 QRS: 79 QRSD: 68 T: 62 QT: 336 QTc: 382 Interpretive Statements SINUS RHYTHM Electronically Signed On 01-21-2022 14:08:02 CDT by Juan Pablo Sarmiento
== END 2022-01-16 15:30 | disposition home or self-care (01) | DRG 918 ==
LOC: ER 21:14 → 5 NORTH 01-16 03:27
PROVIDERS: ADMIT Internal Medicine; ATTEND Internal Medicine
DX: T39.1X2A Poisoning by 4-Aminophenol derivatives, intentional self-harm, initial encounter (principal); T40.722A Poisoning by synthetic cannabinoids, intentional self-harm, initial encounter; Y92.89 Other specified places as the place of occurrence of the external cause; F12.90 Cannabis use, unspecified, uncomplicated; Z82.49 Family history of ischemic heart disease and other diseases of the circulatory system; Z95.810 Presence of automatic (implantable) cardiac defibrillator; Z20.822 Contact with and (suspected) exposure to COVID-19
CPT/HCPCS: 36415; 80053; 80307; 80329; 81001; 81025; 82550; 83690; 83735; 84484; 85025; 85610; 85730; 87426; 93005; 96361; 96365; G0480; J0132; J1650; J7030; J7060; U0003; 99285-25; G0378